=== PATIENT | female | born 1970 | race Caucasian/White ===

== ENCOUNTER 2017-10-07 20:12 | Emergency (ER) | payer MEDICARE ==
[2017-10-07 20:14] VITALS: BP 132/73; PULSE 73; RESP 18; TEMP 98.5; O2SAT 99
[2017-10-07 22:15] VITALS: BP 150/75; PULSE 64; RESP 16; O2SAT 99
--- NOTE | 2017-10-07 22:33 | PD ---
HPI Chief Complaint: GI Complaint Time Seen by Provider: 22:09 Travel History International Travel<30 days: No Contact w/Intl Traveler<30days: No Traveled to known affect area: No History of Present Illness HPI 46-year-old female with history of lap band 3 years ago in [place], here for evaluation because she believes her pain may be too tight. The patient moved to [place] for months ago and has no local physicians yet. She reports feeling indigestion every time she swallows and feeling as though her food back up into her chest. She denies vomiting. She reports similar symptoms about 9 months ago, and at that time had about 0.5 cc of fluid removed from her LAP-BAND. No abdominal pain. Last bowel movement was yesterday. She is able to swallow, however states she can only swallow small amounts at a time. [facility] Past Medical History Cardiovascular Problems: Yes (HTN) Hypertension: Yes Medical other: Yes (FIBROMYALGIA, DEGENERATIVE DISC DISEASE, OSTEOARTHRITIS) ?: Not : 5 Para: 3 Miscarriage: 2 Past Surgical History Section: Yes (X 3) Cholecystectomy: Yes Eye Surgery: Yes (LEFT ORBITAL FLOOR REPLACED) Other Surgery: Yes (LAP BAND (2013)) Social History Alcohol Use: Yes (OCCASIONALLY) Tobacco Use: Yes (LESS THAN 1/2 PACK PER DAY) Substance Use: No Allergies-Medications (Allergen,Severity, Reaction): Coded Allergies: penicillin G (Verified Allergy, Severe, HIVES, SWELLING, 10/07/17) Review of Systems Except as stated in HPI: all other systems reviewed are Neg Physical Exam Narrative GENERAL: Well-developed, well-nourished, overweight, comfortable, no apparent distress. SKIN: Focused skin assessment warm/dry. HEAD: Atraumatic. Normocephalic. EYES: Pupils equal and round. No scleral icterus. No injection or drainage. ENT: Mucous membranes pink and moist. NECK: Trachea midline. No JVD. CARDIOVASCULAR: Regular rate and rhythm. No murmur appreciated. RESPIRATORY: No accessory muscle use. Clear to auscultation. Breath sounds equal bilaterally. GASTROINTESTINAL: Abdomen soft, non-tender, nondistended. MUSCULOSKELETAL: No obvious deformities. No clubbing. No cyanosis. No edema. NEUROLOGICAL: Awake and alert. No obvious cranial nerve deficits. Motor grossly within normal limits. Normal speech. PSYCHIATRIC: Appropriate mood and affect; insight and judgment normal. Data Data Last Documented VS Vital Signs Date Time Temp Pulse Resp B/P (MAP) Pulse Ox O2 Delivery O2 Flow Rate FiO2 10/07/17 22:15 64 16 150/75 (100) 99 Room Air 10/07/17 20:14 98.5 Orders Orders Ed Discharge Order (10/07/17 22:33) MDM Medical Decision Making Medical Screen Exam Complete: Yes Emergency Medical Condition: Yes Differential Diagnosis Lap band overinflation, bowel obstruction Narrative Course I was able to contact our bariatric surgeon Dr. oHffman. He tells me that I can either remove some fluid from her LAP-BAND or have her follow-up in his office tomorrow morning. The patient prefers to follow up with him tomorrow morning. She is able to swallow and tolerate her secretions. Her abdominal exam shows no tenderness. Diagnosis Primary Impression: Hx of laparoscopic gastric banding Referrals: Emmanuel Hoffman MD 1 day Additional Instructions: Follow-up with bariatric surgeon Dr. Hoffman tomorrow by calling his office at 9: 00 AM to schedule an appointment. Return to the emergency department for worsening symptoms or any other concerns. Disposition: 01 DISCHARGE HOME Condition: Stable Piero Farias MD Oct 07, 2017 22:33
== END 2017-10-07 22:49 | disposition home or self-care (01) ==
LOC: NEPE 20:12
DX: T85.898A Other specified complication of other internal prosthetic devices, implants and grafts, initial encounter (principal); K30 Functional dyspepsia; I10 Essential (primary) hypertension; M79.7 Fibromyalgia; Z88.0 Allergy status to penicillin
CPT/HCPCS: 99282